=== PATIENT | male | born 1975 | race American Indian/Alaskan Native ===

== ENCOUNTER 2021-06-28 13:53 | Emergency (ER) | payer SELFPAY ==
[2021-06-28 16:42] VITALS: BP 158/92
--- NOTE | 2021-06-28 17:24 | Emergency Department Report ---
ED ENT HPI - General Chief complaint: Skin/Abscess/Foreign Body Stated complaint: FB EAR Time Seen by Provider: 06/28/21 17:02 Source: patient Mode of arrival: Ambulatory Limitations: No Limitations - History of Present Illness Initial comments: Patient is a 46-year-old male who presents emergency with complaints of a foreign body present to the left ear that occurred earlier today. She states that he was cleaning his ears with a Q-tip and the cotton part of the Q-tip got stuck in the ear and he was unable to remove it. He states his hearing feels s lightly muffled. He denies any bleeding from the ear or drainage. PMHx HTN. No allergies to medications. - Related Data Allergies Allergy/AdvReac Type Severity Reaction Status Date / Time No Known Allergies Allergy Verified 06/28/21 16:42 ED Dental HPI - General Chief complaint: Skin/Abscess/Foreign Body Stated complaint: FB EAR Time Seen by Provider: 06/28/21 17:02 Source: patient Mode of arrival: Ambulatory Limitations: No Limitations - Related Data Allergies Allergy/AdvReac Type Severity Reaction Status Date / Time No Known Allergies Allergy Verified 06/28/21 16:42 ED Review of Systems ROS: Stated complaint: FB EAR Other details as noted in HPI Comment: All other systems reviewed and negative ED Past Medical Hx - Past Medical History Previous Medical History?: Yes Hx Hypertension: Yes ED Physical Exam - General Limitations: No Limitations General appearance: alert, in no apparent distress - Head Head exam: Present: atraumatic, normocephalic - Eye Eye exam: Present: normal appearance - ENT ENT exam: Present: mucous membranes moist, other (right TM and canal are normal in appearance, left canal has white cotton appearing foreign body present) - Neurological Exam Neurological exam: Present: alert, oriented X3 - Psychiatric Psychiatric exam: Present: normal affect, normal mood - Skin Skin exam: Present: warm, dry, intact ED Course Vital Signs 06/28/21 16:41 Temperature 98.1 F Pulse Rate 60 Respiratory 18 Rate Blood Pressure 158/92 O2 Sat by Pulse 99 Oximetry - Foreign Body Removal Ear Location: ear canal (L) Foreign Body Suspected: other (cotton tip of a qtip) Foreign Body Removed: yes Foreign Body Removal Technique: forceps (alligator foreceps) Tympanic Membrane Intact: Yes Patient Tolerated Procedure: well, no complications Complications: none ED Medical Decision Making - Medical Decision Making Patient is a 46-year-old male who presents emergency with complaints of a foreign body present to the left ear that occurred earlier today. She states that he was cleaning his ears with a Q-tip and the cotton part of the Q-tip got stuck in the ear and he was unable to remove it. He states his hearing feels slightly muffled. He denies any bleeding from the ear or drainage. PMHx HTN. No allergies to medications. Vitals are stable. Foreign body removed per procedure note without any complications. Advised patient Follow-up with your primary care doctor. Please avoid using Q-tips in the ears. return to emergency room for any new or worsening symptoms. Critical care attestation.: If time is entered above; I have spent that time in minutes in the direct care of this critically ill patient, excluding procedure time. ED Disposition Clinical Impression: Foreign body in ear Qualifiers: Encounter type: initial encounter Laterality: left Qualified Code(s): T16.2XXA - Foreign body in left ear, initial encounter Disposition: 01 HOME / SELF CARE / HOMELESS Is pt being admited?: No Does the pt Need Aspirin: No Condition: Stable Instructions: Ear Foreign Body Additional Instructions: Follow-up with your primary care doctor. Please avoid using Q-tips in the ears. return to emergency room for any new or worsening symptoms. Referrals: SERGIO IRENE MD [Staff Physician] - 3-5 Days Time of Disposition: 17:26 Print Language: PORTUGUESE
== END 2021-06-28 18:30 | disposition home or self-care (01) ==
LOC: ED 13:53
DX: T16.2XXA Foreign body in left ear, initial encounter (principal); X58.XXXA Exposure to other specified factors, initial encounter; Y93.89 Activity, other specified; Y92.89 Other specified places as the place of occurrence of the external cause; Y99.8 Other external cause status
CPT/HCPCS: 99281